=== PATIENT | female | born 1975 | race African-American/Black ===

== ENCOUNTER → 2020-09-28 13:50 | Outpatient (BNVA) | payer OTHER, SELFPAY | PROVIDERS: PCP Internal Medicine; Visit Provider Internal Medicine Pulmonary Disease | DX: Z76.89 Persons encountering health services in other specified circumstances (principal) ==

== ENCOUNTER 2020-09-28 14:34 | Outpatient (REF) | payer OTHER, SELFPAY ==
[2020-09-28 16:04] LABS: MANUAL DIFF FLAG NO
[2020-09-28 16:15] LABS: Basophils Percent Auto 0.3 % (0-2); Eosinophils Absolute Auto 0.3 X10*3/uL (0.0-0.4); Eosinophils Percent Auto 1.8 % (0-4); Hematocrit 40.3 % (37-47); Hemoglobin 13.1 g/dl (12.0-16.0); Imm Gran Abs Auto 0.06 X10*3/uL (0.00-0.03); Imm Gran Pct Auto 0.4 % (0.0-0.4); Lymphocytes Absolute Auto 4.3 X10*3/uL (1.2-4.9); Lymphocytes Percent Auto 27.8 % (20-40); Mean Corpuscular HGB Conc 32.5 g/dl (31.0-35.0); Mean Corpuscular Hemoglobin 28.9 pg (27.0-33.0); Mean Corpuscular Volume 88.8 fL (80-98); Mean Platelet Volume 9.8 fL (9.4-12.3); Monocytes Percent Auto 6.1 % (2-11); Neutrophils Absolute Auto 9.9 X10*3/uL (2.0-8.3); Neutrophils Percent Auto 63.6 % (45-73); Platelet Count 383 X10*3/uL (160-400); Red Blood Count 4.54 X10*6/uL (4.20-5.50); Red Cell Distribution Width 13.6 % (11.0-16.0); White Blood Count 15.5 X10*3/uL (4.8-10.8)
== END 2020-09-28 14:35 | disposition home or self-care (01) ==
LOC: HO.LAB 14:34
PROVIDERS: PCP Internal Medicine; Visit Provider Internal Medicine Pulmonary Disease
DX: J45.909 Unspecified asthma, uncomplicated (principal)
CPT/HCPCS: 36415; 82785; 85025; 86003

== ENCOUNTER 2020-10-07 13:48 | Outpatient (REF) | payer OTHER, SELFPAY ==
--- NOTE | 2020-10-07 17:29 | PFT_ITS ---
Forced vital capacity, FEV1, PVI76-49, and MVV are all normal. Post bronchodilator therapy, no change. Total lung capacity, normal. Residual volume normal. Diffusion capacity is normal. CONCLUSION: Normal pulmonary function test. MD RODRICK Byrne/MOD[facility] / [id number]
== END 2020-10-07 13:49 | disposition home or self-care (01) ==
LOC: HO.RESP 13:48
PROVIDERS: Visit Provider Internal Medicine Pulmonary Disease
DX: J45.909 Unspecified asthma, uncomplicated (principal); R06.02 Shortness of breath
CPT/HCPCS: 94060; 94727; 94729

== ENCOUNTER → 2021-01-13 14:40 | Outpatient (BNVA) | payer OTHER, SELFPAY | PROVIDERS: PCP Internal Medicine; Visit Provider Internal Medicine Pulmonary Disease | DX: J45.909 Unspecified asthma, uncomplicated (principal) ==

== ENCOUNTER → 2021-07-20 15:20 | Outpatient (BNVA) | payer OTHER, SELFPAY | PROVIDERS: PCP Internal Medicine; Visit Provider Internal Medicine Pulmonary Disease | DX: J45.909 Unspecified asthma, uncomplicated (principal) ==

== ENCOUNTER → 2022-01-12 15:34 | Outpatient (BNVA) | payer OTHER, SELFPAY | PROVIDERS: PCP Internal Medicine; Visit Provider Internal Medicine Pulmonary Disease | DX: J45.909 Unspecified asthma, uncomplicated (principal) ==

== ENCOUNTER → 2023-01-23 15:13 | Outpatient (BNVA) | payer OTHER, SELFPAY | PROVIDERS: PCP Internal Medicine; Visit Provider Internal Medicine Pulmonary Disease | DX: Z13.89 Encounter for screening for other disorder (principal) ==

== ENCOUNTER 2024-01-10 15:36 | Outpatient (AMB) | payer OTHER, SELFPAY ==
[2024-01-10 15:39] VITALS: BP 108/67; PULSE 82; O2SAT 98; BMI 33.3
--- NOTE | 2024-01-10 15:39 | A.OFFVIS_ITS ---
Intake Vital Signs 01/10/24 15:39 Height 5 ft 7 in Weight 212 lb 11.937 oz BMI 33.3 BP 108/67 Blood Pressure Location Rt brachial Position Sitting Pulse 82 Pulse Source Doppler Pulse Oximetry (%) 98 Oxygen Delivery Method Room Air Intake Visit Reasons: dyspnea Allergies ondansetron [From Zofran] Allergy (Verified 01/23/23 15:14) Unknown HPI dyspnea HPI Details 48-year-old lady, nonsmoker, followed fo r moderate persistent asthma, and environmental allergies.? She continues on Flovent and albuterol MDI with good control of her underlying asthma symptoms.? She also been using Singulair and Zyrtec for underlying environmental allergies.? She denies any recent exacerbations.? Review of Systems Const Denies daytime sleepiness, Denies excessive sweating, Denies fatigue, Denies fever(s), Denies lethargy, Denies malaise, Denies night sweats, Denies snoring and Denies weight loss Eyes Denies blurry vision and Denies itchy eyes ENT Denies nasal congestion, Denies post nasal drip, Denies sinus pain, Denies sinus pressure and Denies other ( Thrush) Card Denies chest pain, Denies pedal edema, Denies dyspnea, Denies orthopnea and Denies paroxysmal nocturnal dyspnea Resp Denies cough, Denies hemoptysis, Denies excessive phlegm production, Denies dys pnea, Denies snoring and Denies wheezing GI Denies abdominal pain and Denies heartburn Musc Denies myalgias, Denies arthralgias and Denies joint swelling Skin/Breast Denies rash Neuro Denies memory loss and Denies seizure-like activity Psych Denies abnormal sleep pattern, Denies anxiety and Denies memory loss Endo Denies excessive sweating, Denies fatigue and Denies heat intolerance Rajiv/Lymph Denies easy bruising Aller/Immun Denies itchy eyes, Denies seasonal rhinorrhea and Denies wheezing Physical Exam Vital Signs: Last Vital Signs Pulse 82 01/10/24 15:39 BP 108/67 01/10/24 15:39 Pulse Ox 98 01/10/24 15:39 Oxygen Delivery Method Room Air 01/10/24 15:39 BMI result Body Mass Index 33.3 Const General: no acute distress and alert Nutritional Appearance: not obese Orientation/consciousness: Other orientation findings ( oriented) HEENT Head: Yes atraumatic Eyes General: appearance normal, both eyes and all related structures Sclerae: sclerae normal EOM: EOMs intact bilaterally Neck Neck: Yes supple Lymphatic: no lymphadenopathy noted Resp Effort & Inspection: normal respiratory effort and no use of accessory muscles Auscultation: clear to auscultation bilaterally Cardio Rate: regular rate Rhythm: regular rhythm Heart sounds: no gallops, no murmurs and no rubs Skin General skin exam: other ( warm) Extrem General: No clubbing, No cyanosis and No edema Assessment & Plan Assessment & Plan (1) Asthma: Code(s): J45.909 - Unspecified asthma, uncomplicated Plan: Flovent no longer available, changed to Arnuity. Continue albuterol MDI. Symptoms well controlled at this time. (2) Environmental allergies: Code(s): Z91.09 - Other allergy status, other than to drugs and biological substances Plan: Well controlled on as needed Zyrtec and Singulair. Continue current regimen. Medications: New fluticasone furoate 200 mcg/actuation (Arnuity Ellipta) 1 inh inhalation DAILY 1 ea 6RF 30 days Discontinued fluticasone propionate 110 mcg/actuation (Flovent HFA) Discontinued Reason: Doctor's Order 2 puffs inhalation BID 1 ea 6RF 30 days Coding Level of Care Code Est Pt Level 4 (36190) Diagnoses Asthma J45.909 Environmental allergies Z91.09
== END 2024-01-10 15:47 | disposition home or self-care (01) ==
PROVIDERS: PCP Student in an Organized Health Care Education/Training Program; Visit Provider Internal Medicine Pulmonary Disease
DX: J45.909 Unspecified asthma, uncomplicated (principal); Z91.09 Other allergy status, other than to drugs and biological substances
CPT/HCPCS: 99214

== ENCOUNTER → 2024-01-10 15:36 | Outpatient (BNVA) | payer OTHER, SELFPAY | PROVIDERS: PCP Student in an Organized Health Care Education/Training Program; Visit Provider Internal Medicine Pulmonary Disease ==

== ENCOUNTER 2025-01-08 15:01 | Outpatient (AMB) | payer OTHER, SELFPAY ==
[2025-01-08 15:04] VITALS: BP 111/67; PULSE 76; O2SAT 99; BMI 32.3
--- NOTE | 2025-01-08 15:04 | A.OFFVIS_ITS ---
Vital Signs 01/08/25 15:04 Height 5 ft 7 in Weight 206 lb 2.115 oz BMI 32.3 BP 111/67 Blood Pressure Location Lt brachial Position Sitting Pulse 76 Pulse Source Doppler Pulse Oximetry (%) 99 Oxygen Delivery Method Room Air Intake Visit Reasons: Dyspnea Allergies ondansetron [From Zofran] Allergy (Verified 01/08/25 15:09) Unknown HPI HPI Dyspnea: Details: 48-year-old lady, nonsmoker, followed for moderate persistent asthma, and environmental allergies.? She previously used Flovent, but was switched to Arnuity lost this visit secondary to no availability of Flovent. Unfortunately, patient was not able to afford Arnuity in has been relying on her albuterol MDI, though with stable symptoms at this time. She also been using Singulair and Zyrtec for underlying environmental allergies.? She denies any recent exacerbations.? Review of Systems Const Denies daytime sleepiness, Denies excessive sweating, Denies fatigue, Denies fever(s), Denies lethargy, Denies malaise, Denies night sweats, Denies snoring a nd Denies weight loss Eyes Denies blurry vision and Denies itchy eyes ENT Denies nasal congestion, Denies post nasal drip, Denies sinus pain, Denies sinus pressure and Denies other ( Thrush) Card Denies chest pain, Denies pedal edema, Denies dyspnea, Denies orthopnea and Denies paroxysmal nocturnal dyspnea Resp Denies cough, Denies hemoptysis, Denies excessive phlegm production, Denies dyspnea, Denies snoring and Denies wheezing GI Denies abdominal pain and Denies heartburn Musc Denies myalgias, Denies arthralgias and Denies joint swelling Skin/Breast Denies rash Neuro Denies memory loss and Denies seizure-like activity Psych Denies abnormal sleep pattern, Denies anxiety and Denies memory loss Endo Denies excessive sweating, Denies fatigue and Denies heat intolerance Rajiv/Lymph Denies easy bruising Aller/Immun Denies itchy eyes, Denies seasonal rhinorrhea and Denies wheezing Physical Exam Vital Signs: Last Vital Signs Pulse 76 01/08/25 15:04 BP 111/67 01/08/25 15:04 Pulse Ox 99 01/08/25 15:04 Oxygen Delivery Method Room Air 01/08/25 15:04 BMI result Body Mass Index 32.3 Const General: no acute distress and alert Nutritional Appearance: not obese Orientation/consciousness: Other orientation findings ( oriented) HEENT Head: Yes atraumatic Eyes General: appearance normal, both eyes and all related structures Sclerae: sclerae normal EOM: EOMs intact bilaterally Neck Neck: Yes supple Lymphatic: no lymphadenopathy noted Resp Effort & Inspection: normal respiratory effort and no use of accessory muscles Auscultation: clear to auscultation bilaterally Cardio Rate: regular rate Rhythm: regular rhythm Heart sounds: no gallops, no murmurs and no rubs Skin General skin exam: other ( warm) Extrem General: No clubbing, No cyanosis and No edema Assessment & Plan Assessment & Plan (1) Asthma: Code(s): J45.909 - Unspecified asthma, uncomplicated Category: Medical Plan: Unable to of 4 on Arnuity, will try Asmanex. (2) Environmental allergies: Code(s): Z91.09 - Other allergy status, other than to drugs and biological substances Category: Medical Plan: Well controlled on current regimen of Singulair and Zyrtec. Continue current regimen. Medications: New mometasone 200 mcg/actuation (Asmanex HFA) 2 puffs inhalation BID 13 grams 6RF Coding Level of Care Code Est Pt Level 4 (35228) Diagnoses Asthma J45.909 Environmental allergies Z91.09
--- OUTSIDE RECORDS SUMMARY | 2025-01-08 16:21 | XMS_ITS | Encounter Summary ---
Author Organization [facility], Address [address] [place] [address] Phone Care Team Providers Care Staff Radiographer Name Role Phone Caridad Liu MD Primary Care Provid er Encounter Details Date Type Department Care Team (Late st Contact Info) Description 04/19/2020 Orders Only [facility] [address] [place] [id number] Israel Pate MD [address] [place] [id number] Serum creatinine abnormal Social History Tobacco Use Types Packs/Day Years Used Date Smoking Tobacco: Never Assessed Comments Unknown Sex and Gender Information Value Date Recorded Sex Assigned at Not on file Legal Sex Female 8:48 AM EST Gender Identity Not on file Sexual Orientation Not on file documented as of this encounter Plan of Treatment Not on file documented as of this encounter Visit Diagnoses Diagnosis Serum creatinine abnormal documented in this encounter Care Teams Staff Radiographer Relationship Specialty Start Date End Date Caridad Liu MD [id number] [facility] [address] [place], [place] PCP - General Internal Medicine 11/17/19 documented as of this encounter
--- OUTSIDE RECORDS SUMMARY | 2025-01-08 16:21 | XMS_ITS | Data Portability ---
Author Organization [facility], Main Office Address [address] [facility] [address] [place] [id number] Care Team Providers Care Hi Ranger Operator Name Role Phone ERIKA PAEZ Referring Provider CLARITZA BOONE Volleyball Assembler [phone] LIVIA GONZALES Referring Provider [phone] STEPHEN SMART Primary Care Provider Assessment No assessment recorded. Plan of Treatment Reminders Order Date Submit Date Provider Last Modified By Organization Details Last Modified Time Details Appointments None recorded. Lab lipid panel, serum 2023 024 SARAH [facility], [address], [place], [address], 12:06:11 BMP, serum or plasma 2023 024 SARAH [facility], [address] [place], [address], 4 12:06:11 CBC w/ auto diff 2023 024 SARAH [facility], [address], [place], [address], 4 12:06:10 TSH, ultra-sensi tive, serum 2023 024 SARAH [facility], [address], [place], [address], 4 12:06:12 lipid panel, serum 2021 SARAH [facility], [address], [address], [place], [address], 3 14:59:34 CBC w/ auto diff 2021 SARAH [facility], [address], [address], [place], [address], 3 14:18:16 CMP, serum or plasma 2021 SARAH [facility], [address], [address], [place], [address], 3 14:59:33 TSH, serum or plasma 2021 SARAH [facility], [address], [address], [place], [address], 3 15:20:55 vitamin B12, serum 2021 SARAH [facility], [address], [address], [place], [address], 3 15:20:54 Referral physical therapist referral 2021 022 [email or web address] Not available 3 11:27:18 nutritionis t/dietitian referral [address] [facility], [address] [place], [address], 2 16:22:54 dermatologi referral - hyperpigmen curt area bilateral cheeks 2020 021 [facility], [address] [place] [address], [address], [place], [address], 2 08:58:04 nutritionis t/dietitian referral 2020 021 [email or web address] Not available 1 11:00:31 gynecologis t referral - Patient to schedule 2020 021 [email or web address] Not available 2 13:46:27 Procedures colonoscopy screening (PROC) 2023 024 [email or web address] Not available 4 09:05:41 Surgeries None recorded. Imaging MAMMO, screening, bilateral 2023 024 SARAH [facility], [address] [place], [address], 4 18:04:41 XR, knee, 3 view 2021 022 [email or web address] [facility], [address] [place], [address], 2 15:02:49 MAMMO, screening, bilateral - Perform Diagnostic Mammogram and Breast Ultrasound if needed / Perform Ultrasound Guided Aspiration and/or Breast Biopsy if warranted 2020 021 [email or web address] [facility] ([facility]), [address] [place], [address], 11:00:31 Medication Orders None recorded. Patient TargetsNo targets recorded. Patient Instructions Encounter Date Encounter Id Patient Instructions Last Modified By Organization Details Last Modified Time 02/15/2021 [id number] iliotibial band syndrome: care instructions [email or web address] Not available 02/15/2021 11:46:31 09/20/2021 [id number] starting a weight loss plan: care instructions [email or web address] Not available 09/20/2021 10:46:18 Nutrition Referral and Weight Management Follow-up Information [email or web address] Not available 09/20/2021 10:46:18 Cervical Cancer Screening [email or web address] Not available 09/20/2021 10:46:19 09/26/2022 [id number] starting a weight loss plan: care instructions [email or web address] Not available 09/26/2022 16:01:20 Nutrition Referral and Weight Management Follow-up Information [email or web address] Not available 09/26/2022 16:01:19 12/28/2022 [id number] starting a weight loss plan: care instructions [email or web address] Not available 12/28/2022 15:48:27 05/22/2024 [id number] Well Visit, Ages 18 to 65: Care Instructions Not available 05/22/2024 08:49:00 preventing falls: care instructions Not available 05/22/2024 08:49:00 adjustment disorder: care instructions Not available 05/22/2024 09:34:56 starting a weight loss plan: care instructions Not available 05/22/2024 09:34:56 Nutrition Referral and Weight Management Follow-up Information Not available 05/22/2024 09:34:55 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 malignant neoplasm of cervix Patient to schedule Referring Physician: Annmarie Liu [facility], Encounter Date: 09/20/2021 Linen Aide/dietitian Refer ral for Body mass index 30+ - obesity Referring Physician: Annmarie Liu [facility], Encounter Date: 09/20/2021 Certified Wellness Program Manager Referral for H yperpigmentation of skin hyperpigmented area bilateral cheeks Referring Physician: Annmarie Liu [facility], Encounter Date: 09/20/2021 Linen Aide/dietitian Refer ral for Body mass index 30+ - obesity Referring Physician: Jolene Chen [facility], Encounter Date: 09/26/2022 Physical Therapist Referral for Pain of right knee joint Referring Physician: Jolene Chen [facility], Encounter Date: 09/26/2022 Results Created Date Observation Date Name Description Value Unit Range Abnormal Flag Note LastModifiedBy Organization Detail LastModifiedTime 01/13/20 23 01/12/2023 COMPL ETE BLOOD COUNT WBC 12.4 K/mm3 (4.0-1 1.0) high Not Available [facility] (Centralized Electronic Ordering - All Locations) Patient Can Go To The Location Of Their Choice, [id number] 01/12/2023 14:18:16 01/13/2001/12/2023 COMPL ETE BLOOD COUNT RBC 4.64 M/mm3 (4.20- 5.40) Not Available [facility] (Centralized Electronic Ordering - All Locations) Patient Can Go To The Location Of Their Choice, 01/12/2023 14:18:16 01/13/20 23 01/12/2023 COMPL ETE BLOOD COUNT HGB 13.3 gm/dL (11.7- 15.5) Not Available [facility] (Centralized Electronic Ordering - All Locations) Patient Can Go To The Location Of Their Choice, 01/12/2023 14:18:16 01/13/2001/12/2023 COMPL ETE BLOOD COUNT HCT 42.4 % (35.7- 45.8) Not Available [facility] (Centralized Electronic Ordering - All Locations) Patient Can Go To The Location Of Their Choice, 01/12/2023 14:18:16 01/13/2001/12/2023 COMPL ETE BLOOD COUNT MCV 91.4 fL (80.0- 100.0) Not Available [facility] (Centralized Electronic Ordering - All Locations) Patient Can Go To The Location Of Their Choice, 01/12/2023 14:18:16 01/13/2001/12/2023 COMPL ETE BLOOD COUNT MCH 28.7 pg (27.0- 34.0) Not Available [facility] (Centralized Electronic Ordering - All Locations) Patient Can Go To The Location Of Their Choice, 01/12/2023 14:18:16 01/13/2001/12/2023 COMPL ETE BLOOD COUNT MCHC 31.4 g/dL (33.0- 37.0) low Not Available [facility] (Centralized Electronic Ordering - All Locations) Patient Can Go To The Location Of Their Choice, 01/12/2023 14:18:16 01/13/2001/12/2023 COMPL ETE BLOOD COUNT plt 407 K/mm3 (150-4 60) Not Available [facility] (Centralized Electronic Ordering - All Locations) Patient Can Go To The Location Of Their Choice, 01/12/2023 14:18:16 01/13/2001/12/2023 COMPL ETE BLOOD COUNT RDW-SD 47.3 fL (<47.0 ) high Not Available [facility] (Centralized Electronic Ordering - All Locations) Patient Can Go To The Location Of Their Choice, 01/12/2023 14:18:16 01/13/2001/12/2023 COMPL ETE BLOOD COUNT MPV 9.2 fL (9.4-1 2.4) low Not Available [facility] (Centralized Electronic Ordering - All Locations) Patient Can Go To The Location Of Their Choice, 01/12/2023 14:18:16 01/13/2001/12/2023 COMPL ETE BLOOD COUNT automated NRBC 0.0 #/100 _WBC' s Not Available [facility] (Centralized Electronic Ordering - All Locations) Patient Can Go To The Location Of Their Choice, 01/12/2023 14:18:16 01/13/2001/12/2023 COMPL ETE BLOOD COUNT abs. NRBC 0.0 K/mm3 Not Available [facility] (Centralized Electronic Ordering - All Locations) Patient Can Go To The Location Of Their Choice, 01/12/2023 14:18:16 01/13/2001/12/2023 COMPR EHENS CATHI METAB OLIC PANL glucose 86 mg/dL (70-99 ) Not Available [facility] (Centralized Electronic Ordering - All Locations) Patient Can Go To The Location Of Their Choice, 01/12/2023 14:59:33 01/13/2001/12/2023 COMPR EHENS CATHI METAB OLIC PANL BUN 17 mg/dL (6-20) Not Available [facility] (Centralized Electronic Ordering - All Locations) Patient Can Go To The Location Of Their Choice, 01/12/2023 14:59:33 01/13/2001/12/2023 COMPR EHENS CATHI METAB OLIC PANL creatinine 1.1 mg/dL (0.5-1 .0) high Not Available [facility] (Centralized Electronic Ordering - All Locations) Patient Can Go To The Location Of Their Choice, 01/12/2023 14:59:33 01/13/20 23 01/12/2023 COMPR EHENS CATHI METAB OLIC PANL sodium 136 mmol/ L (133-1 45) Not Available [facility] (Centralized Electronic Ordering - All Locations) Patient Can Go To The Location Of Their Choice, 01/12/2023 14:59:33 01/13/2001/12/2023 COMPR EHENS CATHI METAB OLIC PANL potassium 5.0 mmol/ L (3.6-5 .2) Not Available [facility] ([facility] Ordering - All Locations) Patient Can Go To The Location Of Their Choice, 01/12/2023 14:59:33 01/13/2001/12/2023 COMPR EHENS CATHI METAB OLIC PANL chloride 103 mmol/ L (98-10 7) Not Available [facility] (Centralized Electronic Ordering - All Locations) Patient Can Go To The Location Of Their Choice, 01/12/2023 14:59:33 01/13/2001/12/2023 COMPR EHENS CATHI METAB OLIC PANL bicarbonate 27 mmol/ L (22-29 ) Not Available [facility] (Centralized Electronic Ordering - All Locations) Patient Can Go To The Location Of Their Choice, 01/12/2023 14:59:33 01/13/2001/12/2023 COMPR EHENS CATHI METAB OLIC PANL anion gap 6 (4-17) Not Available [facility] (Centralized Electronic Ordering - All Locations) Patient Can Go To The Location Of Their Choice, 01/12/2023 14:59:33 01/13/2001/12/2023 COMPR EHENS CATHI METAB OLIC PANL albumin 4.2 gm/dL (3.4-4 .8) Not Available [facility] (Centralized Electronic Ordering - All Locations) Patient Can Go To The Location Of Their Choice, 01/12/2023 14:59:33 01/13/2001/12/2023 COMPR EHENS CATHI METAB OLIC PANL calcium 9.7 mg/dL (8.6-1 0.5) Not Available [facility] ([facility] Electronic Ordering - All Locations) Patient Can Go To The Location Of Their Choice, 01/12/2023 14:59:33 01/13/2001/12/2023 COMPR EHENS CATHI METAB OLIC PANL bilirubin,to collin 0.3 mg/dL (0-1.2 ) Not Available [facility] (Central[facility] Electronic Ordering - All Locations) Patient Can Go To The Location Of Their Choice, 01/12/2023 14:59:33 01/13/2001/12/2023 COMPR EHENS CATHI METAB OLIC PANL total protein 7.2 gm/dL (6.2-8 .2) Not Available [facility] ([facility] Electronic Ordering - All Locations) Patient Can Go To The Location Of Their Choice, 01/12/2023 14:59:33 01/13/2001/12/2023 COMPR EHENS CATHI METAB OLIC PANL Ag ratio 1.4 Not Available [facility] (Centralized Electronic Ordering - All Locations) Patient Can Go To The Location Of Their Choice, 01/12/2023 14:59:33 01/13/2001/12/2023 COMPR EHENS CATHI METAB OLIC PANL AST 33 U/L (0-32) high Not Available [facility] (Centralized Electronic Ordering - All Locations) Patient Can Go To The Location Of Their Choice, 01/12/2023 14:59:33 01/13/2001/12/2023 COMPR EHENS CATHI METAB OLIC PANL alk phos 89 U/L (35-10 4) Not Available [facility] ([facility] Electronic Ordering - All Locations) Patient Can Go To The Location Of Their Choice, 01/12/2023 14:59:33 01/13/20 23 01/12/2023 COMPR EHENS CATHI METAB OLIC PANL ALT 49 U/L (0-33) high Not Available [facility] ([facility] Ordering - All Locations) Patient Can Go To The Location Of Their Choice, 01/12/2023 14:59:33 01/13/2001/12/2023 COMPR EHENS CATHI METAB OLIC PANL estimated GFR creatinine 62 mL/mi n/1.7 3_M2 Creat inine based estim ated glome rular filtr ation (eGFR ) in adult s is calcu lated using the Natio nal Kidne y Found ation recom lexie d 2020 CKD-E PI equat ion. Estim ates GFR from serum creat inine , age and sex. Not Available [facility] (Centralized Electronic Ordering - All Locations) Patient Can Go To The Location Of Their Choice, 01/12/2023 14:59:33 01/13/20 23 01/12/2023 LIPID PANEL cholesterol, total 184 mg/dL (<200) Not Available [facility] ([facility] - All Locations) Patient Can Go To The Location Of Their Choice, 01/12/2023 14:59:34 01/13/20 23 01/12/2023 LIPID PANEL triglyceride 108 mg/dL (<150) Not Available [facility] ([facility] - All Locations) Patient Can Go To The Location Of Their Choice, 01/12/2023 14:59:34 01/13/20 23 01/12/2023 LIPID PANEL HDL chol 50 mg/dL (>39) Not Available [facility] ([facility] Ordering - All Locations) Patient Can Go To The Location Of Their Choice, 01/12/2023 14:59:34 01/13/20 23 01/12/2023 LIPID PANEL LDL cholesterol, calculated 112 mg/dL (0-130 ) Not Available [facility] (Central[facility] Ordering - All Locations) Patient Can Go To The Location Of Their Choice, 01/12/2023 14:59:34 01/13/20 23 01/12/2023 LIPID PANEL non HDL cholesterol (calc) 134 mg/dL (<160) Not Available [facility] ([facility] Order[facility] - All Locations) Patient Can Go To The Location Of Their Choice, 01/12/2023 14:59:34 01/13/2001/12/2023 VITAM IN B12 vitamin B12 310 pg/mL (232-1 245) Not Available [facility] ([facility]ized Electronic Ordering - All Locations) Patient Can Go To The Location Of Their Choice, 01/12/2023 15:20:54 01/13/2001/12/2023 TSH WITH REFLE X TO FT4 TSH 2.16 uIU/m L (0.4-4 .2) Not Available [facility] (Centralized Electronic Ordering - All Locations) Patient Can Go To The Location Of Their Choice, 01/12/2023 15:20:55 05/30/20 24 05/31/2024 CBC WITH DIFFE RENTI AL/PL ATELE T WBC 11.5 x10e3 /uL 3.4-10 .8 above high normal Not Available [facility] ([facility]) [address] [facility], [place], [address], 05/31/2024 12:06:10 05/30/20 24 05/31/2024 CBC WITH DIFFE RENTI AL/PL ATELE T RBC 4.47 x10e6 /uL 3.77-5 .28 normal Not Available [facility] ([facility]) [address] [facility], [place], [address], 05/31/2024 12:06:10 05/30/20 24 05/31/2024 CBC WITH DIFFE RENTI AL/PL ATELE T hemoglobin 12.8 g/dL 11.1-1 5.9 normal Not Available [facility] ([facility]) [address] [facility], [place], [address], 05/31/2024 12:06:10 05/30/20 24 05/31/2024 CBC WITH DIFFE RENTI AL/PL ATELE T hematocrit 39.5 % 34.0-4 6.6 normal Not Available [facility] ([facility]) [address] [facility], [place], [address], 05/31/2024 12:06:10 05/30/20 24 05/31/2024 CBC WITH DIFFE RENTI AL/PL ATELE T MCV 88 fL 79-97 normal Not Available [facility] ([facility]) [address] [place], [address], 05/31/2024 12:06:10 05/30/20 24 05/31/2024 CBC WITH DIFFE RENTI AL/PL ATELE T MCH 28.6 pg 26.6-3 3.0 normal Not Available [facility] ([facility]) [address] [place], [address], 05/31/2024 12:06:10 05/30/20 24 05/31/2024 CBC WITH DIFFE RENTI AL/PL ATELE T MCHC 32.4 g/dL 31.5-3 5.7 normal Not Available [facility] ([facility]) [address] [facility], [place], [address], 05/31/2024 12:06:10 05/30/20 24 05/31/2024 CBC WITH DIFFE RENTI AL/PL ATELE T RDW 12.9 % 11.7-1 5.4 Not Available [facility] ([facility]) [address] [facility], [place], [address], 05/31/2024 12:06:10 05/30/20 24 05/31/2024 CBC WITH DIFFE RENTI AL/PL ATELE T platelets 361 x10e3 /uL 150-45 0 normal Not Available [facility] ([facility]) [address] [facility], [place], [address], 05/31/2024 12:06:10 05/30/20 24 05/31/2024 CBC WITH DIFFE RENTI AL/PL ATELE T neutrophils 69 % not estab. normal Not Available [facility] ([facility]) [address] [facility], [place], [address], 05/31/2024 12:06:10 05/30/20 24 05/31/2024 CBC WITH DIFFE RENTI AL/PL ATELE T lymphs 24 % not estab. normal Not Available [facility] ([facility]) [address] [place], [address], 05/31/2024 12:06:10 05/30/20 24 05/31/2024 CBC WITH DIFFE RENTI AL/PL ATELE T monocytes 6 % not estab. normal Not Available [facility] ([facility]) [address] [place], [address], 05/31/2024 12:06:10 05/30/20 24 05/31/2024 CBC WITH DIFFE RENTI AL/PL ATELE T eos 1 % not estab. normal Not Available [facility] ([facility]) [address] [place], [address], 05/31/2024 12:06:10 05/30/20 24 05/31/2024 CBC WITH DIFFE RENTI AL/PL ATELE T basos 0 % not estab. normal Not Available [facility] ([facility]) [address] [facility], [place], [address], 05/31/2024 12:06:10 05/30/20 24 05/31/2024 CBC WITH DIFFE RENTI AL/PL ATELE T immature cells LICENSED PHYSICAL THERAPIST Not Available [facility] ([facility]) [address] [facility], [place], [address], 05/31/2024 12:06:10 05/30/20 24 05/31/2024 CBC WITH DIFFE RENTI AL/PL ATELE T neutrophils (absolute) 7.9 x10e3 /uL 1.4-7. 0 above high normal Not Available [facility] ([facility]) [address] [facility], [place], [address], 05/31/2024 12:06:10 05/30/20 24 05/31/2024 CBC WITH DIFFE RENTI AL/PL ATELE T lymphs (absolute) 2.7 x10e3 /uL 0.7-3. 1 normal Not Available [facility] ([facility]) [address] [place], [address], 05/31/2024 12:06:10 05/30/20 24 05/31/2024 CBC WITH DIFFE RENTI AL/PL ATELE T monocytes(ab solute) 0.7 x10e3 /uL 0.1-0. 9 normal Not Available [facility] ([facility]) [address] [place], [address], 05/31/2024 12:06:10 05/30/20 24 05/31/2024 CBC WITH DIFFE RENTI AL/PL ATELE T eos (absolute) 0.2 x10e3 /uL 0.0-0. 4 normal Not Available [facility] ([facility]) [address] [facility], [place], [address], 05/31/2024 12:06:10 05/30/20 24 05/31/2024 CBC WITH DIFFE RENTI AL/PL ATELE T baso (absolute) 0.0 x10e3 /uL 0.0-0. 2 normal Not Available [facility] ([facility]) [address] [facility], [place], [address], 05/31/2024 12:06:10 05/30/20 24 05/31/2024 CBC WITH DIFFE RENTI AL/PL ATELE T immature granulocytes 0 % not estab. Not Available [facility] ([facility]) [address] [facility], [place], [address], 05/31/2024 12:06:10 05/30/20 24 05/31/2024 CBC WITH DIFFE RENTI AL/PL ATELE T immature grans (abs) 0.0 x10e3 /uL 0.0-0. 1 Not Available [facility] ([facility]) [address] [facility], [place], [address], 05/31/2024 12:06:10 05/30/20 24 05/31/2024 CBC WITH DIFFE RENTI AL/PL ATELE T NRBC LICENSED PHYSICAL THERAPIST Not Available [facility] ([facility]) [address] [facility], [place], [address], 05/31/2024 12:06:10 05/30/20 24 05/31/2024 CBC WITH DIFFE RENTI AL/PL ATELE T hematology comments: LICENSED PHYSICAL THERAPIST Not Available [facility] ([facility]) [address] [place], [address], 05/31/2024 12:06:10 05/30/20 24 05/31/2024 BASIC METAB OLIC PANEL (8) glucose 82 mg/dL 70-99 normal Not Available [facility] ([facility]) [address] [place], [address], 05/31/2024 12:06:10 05/30/20 24 05/31/2024 BASIC METAB OLIC PANEL (8) BUN 23 mg/dL 6-24 normal Not Available [facility] ([facility]) [address] [place], [address], 05/31/2024 12:06:10 05/30/20 24 05/31/2024 BASIC METAB OLIC PANEL (8) creatinine 1.07 mg/dL 0.57-1 .00 above high normal Not Available [facility] ([facility]) [address] [place], [address], 05/31/2024 12:06:10 05/30/20 24 05/31/2024 BASIC METAB OLIC PANEL (8) eGFR 64 mL/mi n/1.7 3 >59 normal Not Available [facility] ([facility]) [address] [place], [address], 05/31/2024 12:06:10 05/30/20 24 05/31/2024 BASIC METAB OLIC PANEL (8) BUN/creatini ne ratio 21 9-23 normal Not Available [facility] ([facility]) [address] [facility] [place], [address], 05/31/2024 12:06:10 05/30/20 24 05/31/2024 BASIC METAB OLIC PANEL (8) sodium 139 mmol/ L 134-14 4 normal Not Available [facility] ([facility]) [address] [facility] [place], [address], 05/31/2024 12:06:10 05/30/20 24 05/31/2024 BASIC METAB OLIC PANEL (8) potassium 4.4 mmol/ L 3.5-5. 2 normal Not Available [facility] ([facility]) [address] [facility] [place], [address], 05/31/2024 12:06:10 05/30/20 24 05/31/2024 BASIC METAB OLIC PANEL (8) chloride 106 mmol/ L 96-106 normal Not Available [facility] ([facility]) [address] [place], [address], 05/31/2024 12:06:10 05/30/20 24 05/31/2024 BASIC METAB OLIC PANEL (8) carbon dioxide, total 18 mmol/ L 20-29 below low normal Not Available [facility] ([facility]) [address] [place], [address], 05/31/2024 12:06:10 05/30/20 24 05/31/2024 BASIC METAB OLIC PANEL (8) calcium 9.1 mg/dL 8.7-10 .2 normal Not Available [facility] ([facility]) [address] [place], [address], 05/31/2024 12:06:10 05/30/20 24 05/31/2024 LIPID PANEL cholesterol, total 169 mg/dL 100-19 9 normal Not Available [facility] ([facility]) [address] [place], [address], 05/31/2024 12:06:11 05/30/20 24 05/31/2024 LIPID PANEL triglyceride s 76 mg/dL 0-149 normal Not Available [facility] ([facility]) [address] [place], [address], 05/31/2024 12:06:11 05/30/20 24 05/31/2024 LIPID PANEL HDL cholesterol 48 mg/dL >39 normal Not Available [facility] ([facility]) [address] [place], [address], 05/31/2024 12:06:11 05/30/20 24 05/31/2024 LIPID PANEL VLDL cholesterol olegario 14 mg/dL 5-40 Not Available [facility] ([facility]) [address] [place], [address], 05/31/2024 12:06:11 05/30/20 24 05/31/2024 LIPID PANEL LDL chol calc ([facility]) 107 mg/dL 0-99 above high normal Not Available [facility] ([facility]) [address] [facility], [place], [address], 05/31/2024 12:06:11 05/30/20 24 05/31/2024 LIPID PANEL LDL calc comment: LICENSED PHYSICAL THERAPIST Not Available [facility] ([facility]) [address] [place], [address], 05/31/2024 12:06:11 05/30/20 24 05/31/2024 TSH RFX ON ABNOR MAL TO FREE T4 TSH 1.770 uIU/m L 0.450- 4.500 normal Not Available [facility] ([facility]) [address] [place], [address], 05/31/2024 12:06:12 07/04/20 24 07/05/2024 CBC WITH DIFFE RENTI AL/PL ATELE T WBC 11.2 x10e3 /uL 3.4-10 .8 above high normal Not Available [facility] ([facility]) [address] [place], [address], 07/05/2024 08:07:16 07/04/20 24 07/05/2024 CBC WITH DIFFE RENTI AL/PL ATELE T RBC 4.55 x10e6 /uL 3.77-5 .28 normal Not Available [facility] ([facility]) [address] [place], [address], 07/05/2024 08:07:16 07/04/20 24 07/05/2024 CBC WITH DIFFE RENTI AL/PL ATELE T hemoglobin 13.2 g/dL 11.1-1 5.9 normal Not Available [facility] ([facility]) [address] [place], [address], 07/05/2024 08:07:16 07/04/20 24 07/05/2024 CBC WITH DIFFE RENTI AL/PL ATELE T hematocrit 41.1 % 34.0-4 6.6 normal Not Available [facility] ([facility]) [address] [facility], [place], [address], 07/05/2024 08:07:16 07/04/2007/05/2024 CBC WITH DIFFE RENTI AL/PL ATELE T MCV 90 fL 79-97 normal Not Available [facility] ([facility]) [address] [place], [address], 07/05/2024 08:07:16 07/04/2007/05/2024 CBC WITH DIFFE RENTI AL/PL ATELE T MCH 29.0 pg 26.6-3 3.0 normal Not Available [facility] ([facility]) [address] [place], [address], 07/05/2024 08:07:16 07/04/2007/05/2024 CBC WITH DIFFE RENTI AL/PL ATELE T MCHC 32.1 g/dL 31.5-3 5.7 normal Not Available [facility] ([facility]) [address] [place], [address], 07/05/2024 08:07:16 07/04/2007/05/2024 CBC WITH DIFFE RENTI AL/PL ATELE T RDW 13.1 % 11.7-1 5.4 Not Available [facility] ([facility]) [address] [place], [address], 07/05/2024 08:07:16 07/04/2007/05/2024 CBC WITH DIFFE RENTI AL/PL ATELE T platelets 409 x10e3 /uL 150-45 0 normal Not Available [facility] ([facility]) [address] [place], [address], 07/05/2024 08:07:16 07/04/20 24 07/05/2024 CBC WITH DIFFE RENTI AL/PL ATELE T neutrophils 61 % not estab. normal Not Available [facility] ([facility]) [address] [facility], [place], [address], 07/05/2024 08:07:16 07/04/20 24 07/05/2024 CBC WITH DIFFE RENTI AL/PL ATELE T lymphs 27 % not estab. normal Not Available [facility] ([facility]) [address] [facility], [place], [address], 07/05/2024 08:07:16 07/04/20 24 07/05/2024 CBC WITH DIFFE RENTI AL/PL ATELE T monocytes 7 % not estab. normal Not Available [facility] ([facility]) [address] [facility], [place], [address], 07/05/2024 08:07:16 07/04/20 24 07/05/2024 CBC WITH DIFFE RENTI AL/PL ATELE T eos 4 % not estab. normal Not Available [facility] ([facility]) [address] [facility], [place], [address], 07/05/2024 08:07:16 07/04/20 24 07/05/2024 CBC WITH DIFFE RENTI AL/PL ATELE T basos 1 % not estab. normal Not Available [facility] ([facility]) [address] [facility] [facility], [place], [address], 07/05/2024 08:07:16 07/04/20 24 07/05/2024 CBC WITH DIFFE RENTI AL/PL ATELE T immature cells LICENSED PHYSICAL THERAPIST Not Available [facility] ([facility]) [address] [facility], [place], [address], 07/05/2024 08:07:16 07/04/20 24 07/05/2024 CBC WITH DIFFE RENTI AL/PL ATELE T neutrophils (absolute) 6.9 x10e3 /uL 1.4-7. 0 normal Not Available [facility] ([facility]) [address] [facility], [place], [address], 07/05/2024 08:07:16 07/04/20 24 07/05/2024 CBC WITH DIFFE RENTI AL/PL ATELE T lymphs (absolute) 3.0 x10e3 /uL 0.7-3. 1 normal Not Available [facility] ([facility]) [address] [facility], [place], [address], 07/05/2024 08:07:16 07/04/20 24 07/05/2024 CBC WITH DIFFE RENTI AL/PL ATELE T monocytes(ab solute) 0.8 x10e3 /uL 0.1-0. 9 normal Not Available [facility] ([facility]) [address] [facility], [place], [address], 07/05/2024 08:07:16 07/04/20 24 07/05/2024 CBC WITH DIFFE RENTI AL/PL ATELE T eos (absolute) 0.4 x10e3 /uL 0.0-0. 4 normal Not Available [facility] ([facility]) [address] [facility], [place], [address], 07/05/2024 08:07:16 07/04/20 24 07/05/2024 CBC WITH DIFFE RENTI AL/PL ATELE T baso (absolute) 0.1 x10e3 /uL 0.0-0. 2 normal Not Available [facility] ([facility]) [address] [place], [address], 07/05/2024 08:07:16 07/04/20 24 07/05/2024 CBC WITH DIFFE RENTI AL/PL ATELE T immature granulocytes 0 % not estab. Not Available [facility] ([facility]) [address] [facility], [place], [address], 07/05/2024 08:07:16 07/04/20 24 07/05/2024 CBC WITH DIFFE RENTI AL/PL ATELE T immature grans (abs) 0.0 x10e3 /uL 0.0-0. 1 Not Available [facility] ([facility]) [address] [facility], [place], [address], 07/05/2024 08:07:16 07/04/20 24 07/05/2024 CBC WITH DIFFE RENTI AL/PL ATELE T NRBC LICENSED PHYSICAL THERAPIST Not Available [facility] ([facility]) [address] [facility], [place], [address], 07/05/2024 08:07:16 07/04/20 24 07/05/2024 CBC WITH DIFFE RENTI AL/PL ATELE T hematology comments: LICENSED PHYSICAL THERAPIST Not Available [facility] ([facility]) [address] [facility], [place], [address], 07/05/2024 08:07:16 03/28/20 22 03/28/2022 MAMMO , scree poppy, digit al, bilat eral PROCED URE: MM Digita l Mammo Screen ing INDICA TION: Screen ing for breast cancer . COMPAR EVELINE: Multip le priors , most recent exam 11/30/19 21 TECHNI QUE: Full-f ield digita l CC and MLO 3D tomosy nthesi s images of both breast s were acquir ed. Comput er-aid ed detect ion (CAD) was utiliz ed in the interp retati on of this study. DENSIT Y: The breast tissue is hetero geneou sly dense, which may obscur e masses . FINDIN GS: Focal asymme try within the retroa reolar aspect of the right breast , drafter construction ior one third IMPRES BELTRAN: Spot compre ssion CC and MLO views of the right breast recomm ended. Ultras ound may be indica curt RECOMM ENDATI ON: Diagno stic 3D tomosy nthesi s of the right breast with schedu led ultras ound BI-RAD S: 0 (Incom plete - Need Additi onal Imagin g Evalua tion. We will recall the iesha novoa) Lay letter mailed to iesha prieto WSN: [id number] Orderi ng Physic tod: Francisca mcguire MD, Annmarie Julian t Class: Outpat ient [facility] (Outpt Imaging) [address] [place] [address], [address], 10/08/2022 01:20:38 04/04/20 22 04/04/2022 mm digit al mammo unila t right PROCED URE: MM Digita l Mammo Unilat Right INDICA TION: Call back from screen ing COMPAR EVELINE: Multip le prior studie s dating back to 2018 TECHNI QUE: Digita l diagno stic mammog everett consis ting of spot compre ssion cc and spot compre ssion MLO tomosy nthesi s. FINDIN GS: The focal asymme try seen in the drafter construction ior latera l right breast efface s with spot compre ssion, with stabil ity of the parenc hymal patter n compar ed with multip le prior studie s. Findin gs are consis tent with summat ion artifa ct. IMPRES BELTRAN: No mammog raphic eviden ce of malign ignacio right breast . RECOMM ENDATI ON: Annual mammog raphic screen ing BI-RAD S: 1 (Negat cathi) Lay letter mailed to iesha prieto WSN: [id number] Orderi ng Physic tod: Francisca mcguire MD, Annmarie Julian t Class: Outpat ient [facility] (Outpt Imaging) [address] [place] [address], [address], 10/08/2022 01:20:37 04/05/20 23 04/05/2023 MAMMO , scree poppy, digit al, bilat eral Bilate ral full field digita l breast tomosy nthesi s perfor med on a Hologi c Seleni a dimens ion with I CAD second look 7.2-H comput er aided detect ion dated April 05, 2023. Compar eveline films are from March 28, 2022 and 2020. HISTOR Y: Breast cancer screen ing. FINDIN GS: The breast s are hetero geneou sly dense, which may obscur e small masses . No suspic ious mass, nodule , morgan ectura l distor tion or groupe d microc alcifi cation s are seen. There is no eviden ce of skin thicke poppy or nipple retrac tion. IMPRES BELTRAN: No mammog raphic eviden ce of malign ignacio and no signif icant interv al change . Recomm endati on: Routin e annual screen ing. Examin ation [id number] and G0202. BI-RAD S one negati ve. Letter L3. Thank you for ayaani ng me to partic ipate in the care of this patien t. WSN: [id number] Orderi ng Physic tod: Ronnie Bello ie Dictat ed By: Miguel Childress MD Dictat ed Date/T do: 3:40 pm Review ed By: Miguel Childress MD Signed By: Miguel Childress MD Signed Date/T do: 3:40 pm Transc ribed By: CADEN Transc riptio n Date/T do: 3:39 pm Birads : Patien t Class: Outpat ient [address] (Outpt Imaging) [address] [facility], [place], [address], 04/05/2023 15:55:39 08/14/20 24 08/14/2024 MAMMO , scree poppy, bilat eral No observ ation record ed. [facility] [address] , [place], [address], 08/17/2024 10:25:01 08/14/20 24 08/14/2024 MAMMO , scree poppy, digit al, bilat eral PROCED URE: MM Digita l Mammo Screen ing INDICA TION: Screen ing for breast cancer . No known palpab le abnorm alitie s. COMPAR EVELINE: Back to 11/30/19 21. TECHNI QUE:Fu ll-fie ld digita l CC and MLO 3D tomosy nthesi s images of both breast s were acquir ed. Comput er-aid ed detect ion (CAD) was utiliz ed in the interp retati on of this study. DENSIT Y: The breast s are hetero geneou sly dense, which may obscur e small masses . FINDIN GS: No suspic ious masses , microc alcifi cation s, areas of morgan ectura l distor tion, or skin thicke poppy to sugges t malign ignacio. IMPRES BELTRAN: No mammog raphic eviden ce of malign ignacio. RECOMM ENDATI ON: Annual mammog raphic screen ing. BI-RAD S: 1 (Negat cathi) Lay letter mailed to iesha prieto WSN: [id number] Orderi ng Physic tod: Ronnie Bello Dictat ed By: Izzy Perez MD Dictat ed Date/T do: 5:58 pm Review ed By: Izzy Perez MD Signed By: Izzy Perez MD Signed Date/T do: 5:58 pm Transc ribed By: CSB Transc riptio n Date/T do: 5:55 pm Birads : Iesha prieto Class: Outpat ient [id number] [facility] (Outpt Imaging) [address] [place] [address], [address], 08/17/2024 10:24:30 Result Notes None recorded. Problems Name Problem SNOMED Code Status Onset Date Resolution Date Notes Provider Name and Address Organization Details Recorded Time Finding of trunk structur e [id number] Completed 201309/05/2016 IMPRESSI ON: X NEARLY 1 WEEK NOW, TENDER AND PAINFUL. NO FEVERS, CHILLS, VOMITING OR DIARRHEA . NO PAST HX OF GI DZ. NOT REDUCIBL E. XRAY NO SIGNS OF OBSTRUCT ION, COLON FILLED WITH STOOL BEEN USING MIRALAX X PAST 4 DAYS WITHOUT SIG CHANGE IN PAIN OR MASS. DISCUSSE D WITH PCP WHO ALSO SAW AND EXAMINED PT. WILL CHECK US HAVE SURGICAL CONSULT. PT IS AGAIN AWARE TO SEEK MORE IMMEDIAT E ATTN IN ER IN MEANTIME FOR ANY ACUTE WORSENIN G SXS. WE WILL ARRANGE BOTH SURGICAL APPT AND US.; RECORDED 04/22/20 14 8:56AM BY MEE ATKINSON, OFFICE VISIT Annmarie farooq null, [facility] 6 15:24:27 Generali zed abdomina l pain [id number] Completed 200805/18/2014 IMPRESSI ON: NEG ABD/PELV IS US, PAIN IS RESOLVED , NO FURTHER WORKUP; RECORDED 05/06/20 09 7:51AM BY VOLODYMYR MELO, JAMES ON/ADDEN DUM Annmarie Chavira-Geraldine farooq null, [facility] 6 10:20:01 Dysfunct ional uterine bleeding Completed 201304/26/2016 RECORDED 04/22/20 14 8:56AM BY MEE ATKINSON, OFFICE VISIT Annmarie farooq null, [facility] 6 10:20:02 Abnormal weight gain 741998047 Completed 201205/18/2014 RECORDED 11/24/19 13 4:03PM BY ENEIDA JACOBS MA, JAMES ON/ADDEN DUM Annmarie Chavira-D yoliorenolga null, [facility] 6 10:20:01 Allergic rhinitis [id number] Completed 201304/26/2016 IMPRESSI ON: ALLERGIE S QUITE UNDERTRE ATED CAUSING A COUGH. TREAT BELOW, STAY ON ZYRTEC, CALL IFN OT IMPROVED ; RECORDED 04/22/20 14 8:56AM BY MEE ATKINSON, OFFICE VISIT Annmarie farooq null, [facility] 6 10:20:02 Allergic rhinitis 47743633 Completed 200805/18/2014 IMPRESSI ON: ACTIVE, NEVER TX WITH SPRAY AND PILL, TRIAL FOR ONE MONTH, IF NOT BETTER TO ALLERGIS T FOR TESTING, SAMPLES OF NASONEX TO PT, NO EVIDENCE OF SINUSITI S, NEW PREOBLEM TO EXAMINER ; RECORDED 05/06/20 09 7:51AM BY VOLODYMYR MELO, JAMES ON/ADDEN DUM Annmarie Chavira-D yoliorenolga null, [facility] 6 10:20:01 Patient status finding [id number] Completed 201304/26/2016 RECORDED 04/22/20 14 9:06AM BY MEE ATKINSON, OFFICE VISIT Annmarie sellers, [facility] 6 10:20:02 Patient status finding [id number] Completed 201205/18/2014 RECORDED 11/24/19 13 4:03PM BY ENEIDA JACOBS MA, ANNOTATI ON/ADDEN DUM Annmarie sellers, [facility] 6 10:20:01 Cough 47325773 Completed 201205/18/2014 IMPRESSI ON: DRY RELATED TO ALLERGIE S, SPIROMET RY NL, NO ROLE FOR INHALER; RECORDED 11/24/19 13 4:03PM BY ENEIDA JACOBS MA, ANNOTATI ON/ADDEN DUM Annmarie sellers, [facility] 6 10:20:01 Influenz a vaccine needed [id number] 06 Completed 201204/26/2016 IMPRESSI ON: WILL GIVE TO PT, 4 YEAR OLD CANNOT GET FLU SHOT DUE TO LACK OF SUPPLY, MOM WILL GET VACCINAT ED; RECORDED 10/16/20 13 1:11PM BY ROSANA SHAHID MA, NURSE VISIT Annmarie sellers [facility] 6 10:20:02 Influenz a vaccine needed [id number] 06 Completed 201105/18/2014 RECORDED 06/18/20 12 9:33AM BY MEE ATKINSON, OFFICE VISIT Annmarie sellers, [facility] 6 10:20:01 Adult health examinat ion Completed 201304/26/2016 IMPRESSI ON: PAP IS UTD, PT RODRIGUEZ EE DIRECTOR OF THERAPY SERVICES FOR ERRATIC PERIODS; RECORDED 04/22/20 14 5:06PM BY ANNMARIE Malone MD, OFFICE VISIT Annmarie sellers [facility] 6 10:20:02 Well child 376503375 Completed 201105/18/2014 RECORDED 07/21/20 12 2:39PM BY JAMES AMADOR ON/ADDEN DUM Annmarie sellers, [facility] 6 10:20:02 Pure hypercho lesterol emia 258276163 Completed 201304/26/2016 RECORDED 04/22/20 14 8:56AM BY MEE ATKINSON, OFFICE VISIT Annmarie sellers, [facility] 6 10:20:02 Leukocyt osis 839337844 Completed 201304/26/2016 IMPRESSI ON: ELEVATED AT 15 IN THE PAST, PT TO RECHECK ELVEL, WORKUP FORM HEMATOLO GY ALL BENIGN; RECORDED 04/22/20 14 8:56AM BY MEE ATKINSON, OFFICE VISIT STEPHEN SMART MD [address] [facility] [address] [address] [place] [address] 4 11:13:59 Low back pain 028729316 Completed 201304/26/2016 RECORDED 04/22/20 14 8:56AM BY MEE ATKINSON, OFFICE VISIT Annmarie sellers, [facility] 6 10:20:02 Malaise and fatigue 015282665 Completed 201304/26/2016 IMPRESSI ON: MOOD IS BETTER, ENCOURAG ED MORE EXERCISE ; RECORDED 04/22/20 14 8:56AM BY MEE ATKINSON, OFFICE VISIT Annmarie sellers, [facility] 6 10:20:02 Malaise and fatigue 008849306 Completed 201205/18/2014 IMPRESSI ON: OUT OF WORK, SOME ANXIETY, USING LORAZEPA M NOW AND THEN PROMISES TO DO COUNSELI NG; RECORDED 11/24/19 13 4:03PM BY ENEIDA JACOBS MA, JAMES ON/ADDEN DUM Annmarie sellers, [facility] 6 10:20:01 Administ ration of bacteria l and viral vaccine Completed 201105/18/2014 RECORDED 04/18/20 12 2:36PM BY MEE ATKINSON, OFFICE VISIT Annmarie sellers, [facility] 6 10:20:01 Palpitat ions 26954457 Completed 201304/26/2016 IMPRESSI ON: NL EKG; RECORDED 04/22/20 14 8:56AM BY MEE ATKINSON, OFFICE VISIT Annmarie sellers, [facility] 6 10:20:02 Eruption [id number] Completed 201205/18/2014 RECORDED 11/24/19 13 4:03PM BY ENEIDA JACOBS MA, ANNOTATI ON/ADDEN DUM Annmarie sellers, [facility] 6 10:20:01 Adult health examinat ion Completed 201105/18/2014 IMPRESSI ON: PT TO GET PAP WITH DR EUNICE DELCID DISCUSS CONTROL, NL PAP LAST YEAR. INCREASE EXERCISE , VEGGIES AND DECREASE CARBS; RECORDED 07/21/20 12 2:39PM BY JAMES AMADOR ON/ADDEN DUM Annmarie sellers [facility] 6 10:20:02 Allergic urticari a [id number] Completed 201304/26/2016 RECORDED 04/22/20 14 8:56AM BY MEE ATKINSON, OFFICE VISIT Annmarie sellers [facility] 6 10:20:02 Vaginiti s and vulvovag initis Completed 200504/26/2016 DATE: 03/18/20 06; ; RECORDED 04/22/20 14 8:56AM BY MEE ATKINSON, OFFICE VISIT Annmarie sellers [facility] 6 10:20:02 Generali zed abdomina l pain [id number] Completed 200806/07/2014 IMPRESSI ON: NEG ABD/PELV IS US, PAIN IS RESOLVED , NO FURTHER WORKUP; RECORDED 05/06/20 09 7:51AM BY JAMES YORK ON/ADDEN DUM Annmarie sellers, [facility] 6 10:20:01 Abnormal weight gain 452250911 Completed 201206/07/2014 RECORDED 11/24/19 13 4:03PM BY ENEIDA JACOBS MA, JAMES ON/ADDEN DUM Annmarie sellers, [facility] 6 10:20:01 Cough 03747808 Completed 201206/07/2014 IMPRESSI ON: DRY RELATED TO ALLERGIE S, SPIROMET RY NL, NO ROLE FOR INHALER; RECORDED 11/24/19 13 4:03PM BY ENEIDA JACOBS MA, JAMES ON/ADDEN DUM Annmarie sellers, [facility] 6 10:20:01 Influenz a vaccine needed [id number] 06 Completed 201306/07/2014 IMPRESSI ON: WILL GIVE TO PT, 4 YEAR OLD CANNOT GET FLU SHOT DUE TO LACK OF SUPPLY, MOM WILL GET VACCINAT ED; RECORDED 04/22/20 14 8:49AM BY JAMES AMADOR ON/ADDEN DUM Annmarie sellers, [facility] 6 10:20:01 Well child [id number] Completed 201106/07/2014 IMPRESSI ON: PAP TODAY; RECORDED 07/21/20 12 2:39PM BY JAMES AMADOR/ADDEN DUM Annmarie sellers, [facility] 6 10:20:02 Administ ration of bacteria l and viral vaccine Completed 201106/07/2014 RECORDED 04/18/20 12 2:36PM BY MEE ATKINSON, OFFICE VISIT Annmarie GladingEmil sellers [facility] 6 10:20:02 Obesity [id number] Active 2013 VOL[address] [place], [facility] 1 10:17:39 Eruption [id number] Completed 201206/07/2014 RECORDED 11/24/19 13 4:03PM BY ENEIDA JACOBS MA, ANNOTATI ON/ADDEN DUM Annmarie johnsonsai sellers [facility] 6 10:20:01 Disorder of breast 53192111 Completed 04/26/2016 [address]ine [address]sai sellers [facility] 6 10:20:02 Pain in calf 890254585 Completed 04/26/2016 Ann[address]Geraldine el[address]sai sellers [facility] 6 10:20:02 Asthma 492472054 Completed 202009/20/2021 Annmarie johnsonsai sellers, 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 1 12:21:59 Leukocyt osis 969768850 Active 2013 IMPRESSI ON: ELEVATED AT 15 IN THE PAST, PT TO RECHECK ELVEL, WORKUP FORM HEMATOLO GY ALL BENIGN; RECORDED 04/22/20 14 8:56AM BY MEE ATKINSON, OFFICE VISIT STEPHEN SMART MD [address] [facility] [address], [facility] [address], [facility] 4 11:13:59 Problem Notes None recorded. Procedures Surgical History Date Name Laterality Status Provider Name and Address Organization Details Recorded Time 4 Most Recent Mammogram completed Radha Hurtado [facility] 08/17/2024 10:24:27 2 Mammogram one breast completed Bhumi Forman [facility] 04/12/2022 11:13:33 2 Mammogram screening completed Destini Dunlap [facility] 03/29/2022 10:57:00 2 Date of Last Pap Smear completed Cheri Castano [facility] 03/02/2022 15:29:21 2 Hernia Repair completed Gracie Martinez [facility] 04/25/2015 13:43:02 Imaging Results Imaging Date Name Status LastModified by Organiz ation Details LastModified Time 03/28/2022 MAMMO, screening, digital, [facility] [address] [place] [address], [address], 10/08/2022 01:20:38 04/04/2022 mm digital mammo unilat right completed [facility] (Outpt Imaging) [address] [place], [address], 10/08/2022 01:20:37 04/05/2023 MAMMO, screening, digital, bilateral completed [address] (Outpt Imaging) [address] [place], [address], 04/05/2023 15:55:39 08/14/2024 MAMMO, screening, bilateral completed [address] [facility] [address] [place], [address], 08/17/2024 10:25:01 08/14/2024 MAMMO, screening, digital, bilateral completed [address] (Outpt Imaging) [address] [place] [address], [address], 08/17/2024 10:24:30 Procedure Notes None recorded. Medical Equipment None Reported. Allergies Allergen ID Allergen Name Allergen Category Reaction Reaction Severity Criticality Documentation Date Start Date Code Code System Note Provider Name and Address Organization Details Recorded Time 28262 Zofran medicatio n hives severe Not available 05/15/2017 11920 RxNorm Mee Atkinson MA [facility], [facility] 7 11:06:12 Medications Name Sig Start Date Stop Date Status Note LastModified by Organization Details LastModified Time foster fe 11/16 1-20 mg-mcg tabs active Not Available Not Available Not Available azelastin e 0.05 % eye drops 05/15 completed Not Available Not Available Not Available Apri 0.15 mg-0.03 mg tablet DAILY 01/08 completed RECORDED 01/09/20 11 8:54AM BY MEE ATKINSON, OFFICE VISIT; Not Available Not Available Not Available tretinoin 0.025 % topical cream 07/23 completed Not Available Not Available Not Available meloxicam 15 mg tablet 07/23 completed Not Available Not Available Not Available prednison e 20 mg tablet DAILY 09/05 completed Not Available Not Available Not Available Zyrtec 10 mg tablet DAILY 05/06 completed RECORDED 05/06/20 09 9:02AM BY VOLODYMYR MELO, OFFICE VISIT; Not Available Not Available Not Available Fluticaso ne Propionat e (Inhal) 50 mcg/BLIST inhl powd DAILY active RECORDED 07/26/20 11 2:51PM BY JAMES URENA/JUAQUIN HENRIQUEZ; Not Available Not Available Not Available amoxicill in 875 mg tablet Take 1 tablet every 12 hours by oral route for 14 days. 05/15 completed Not Available Not Available Not Available citalopra m 20 mg tablet DAILY 06/18 completed RECORDED 06/18/20 12 9:28AM BY MEE ATKINSON, OFFICE VISIT; Not Available Not Available Not Available Ro 180 mg tablet DAILY 05/06 completed RECORDED 05/06/20 09 9:02AM BY VOLODYMYR MELO, OFFICE VISIT; Not Available Not Available Not Available monteluka st 10 mg tablet TAKE 1 TABLET BY MOUTH EVERY DAY 2023 active Not Available Not Available Not Avai lable albuterol sulfate HFA 90 mcg/actua tion aerosol inhaler INHALE 2 PUFF BY MOUTH EVERY 4 6 HOURS NEEDED FOR SHORTNES S OF BREATH OR WHEEZING active Not Available Not Available No t Available fluticaso ne propionat e 50 mcg/actua tion nasal spray,[employer] [place] 2 sprays every day by intranas al route each nostril for 30 days. active prn Not Available Not Available No t Available loratadin e 10 mg tablet 05/06 completed RECORDED 05/06/20 09 8:18AM BY VOLODYMYR MELO, OFFICE VISIT; Not Available Not Available Not Available 11/16 (28) 1 mg-20 mcg (21)/75 mg (7) tablet TAKE 1 TABLET BY MOUTH EVERY DAY active Not Available Not Available No t Available Flovent HFA 110 mcg/actua tion aerosol inhaler Inhale 2 puffs twice a day by inhalati on route for 30 days. active Not Available Not Available No t Available Vitamin D3 1000 po qd active Not Available Not Available No t Available Zyrtec 10 mg capsule Take 1 capsule every day by oral route. active Not Available Not Available No t Available Qvar RediHaler 80 mcg/actua tion HFA breath activated aerosol INHALE ONCE INTO THE LUNGS TWICE A DAY 09/26 completed Not Available Not Available Not Available Afluria Qd 2019- (36 mos up)(PF)60 mcg (15 mcg x4)/0.5 mL IM syringe PHARMACY ADMINIST ERED 08/19 completed Not Available Not Available Not Available Vitals Date Recorded Body height Body mass index (BMI) Body weight Oxygen saturation Oxygen saturation in Arterial blood by Pulse oximetry Heart rate Body temperature Systolic blood pressure Diastolic blood pressure Provider Name and Address Organization Details Last Updated DateTime 1 153.67 cm 39.4 kg/m2 16989.5 4 g 98 % 98 % 83 /min 97.7 [degF] 111 mm[Hg] 62 mm[Hg] Mee Atkinson MA [facility] 1 11:37:09 Date Recorded Body height Body mass index (BMI) Body weight Heart rate Oxygen saturation Oxygen saturation in Arterial blood by Pulse oximetry Body temperature Systolic blood pressure Diastolic blood pressure Provider Name and Address Organization Details Last Updated DateTime 1 153.67 cm 39.2 kg/m2 59542.8 4 g 85 /min 98 % 98 % 98.42 [degF] 111 mm[Hg] 73 mm[Hg] Eneida Jacobs MA [facility] 1 10:23:00 Date Recorded Body height Body mass index (BMI) Body weight Oxygen saturation Oxygen saturation in Arterial blood by Pulse oximetry Heart rate Body temperature Systolic blood pressure Diastolic blood pressure Provider Name and Address Organization Details Last Updated DateTime 2 153.67 cm 40.9 kg/m2 63529.1 7 g 99 % 99 % 88 /min 98.42 [degF] 126 mm[Hg] 77 mm[Hg] Mee Atkinson MA [facility] 2 15:10:40 Date Recorded Body height Body mass index (BMI) Body weight Heart rate Oxygen saturation Oxygen saturation in Arterial blood by Pulse oximetry Body temperature Systolic blood pressure Diastolic blood pressure Provider Name and Address Organization Details Last Updated DateTime 3 153.67 cm 40.4 kg/m2 28355.8 g 84 /min 99 % 99 % 97.9 [degF] 135 mm[Hg] 85 mm[Hg] Rena Cruz MA [facility] 3 15:06:37 Date Recorded Body height Body mass index (BMI) Body weight Oxygen saturation Oxygen saturation in Arterial blood by Pulse oximetry Heart rate Body temperature Systolic blood pressure Diastolic blood pressure Provider Name and Address Organization Details Last Updated DateTime 4 152.53 cm 38.7 kg/m2 81291.0 9 g 98 % 98 % 81 /min 97.8 [degF] 119 mm[Hg] 71 mm[Hg] Mee Atkinson MA [facility] 4 08:21:34 Social History Question Answer Notes LastModified by Organizat ion Details LastModified Time Tobacco Smoking Status Never Smoker Gracie sellers [facility] 04/25/2015 15:23:23 Do You Have An Advance Directive? No Information not available 09/20/2021 What Is Your Level Of Alcohol Consumption? None Information not available 04/25/2015 Is Blood Transfusion Acceptable In An Emergency? Yes [email or web address] Information not available 04/26/2016 What Is Your Level Of Caffeine Consumption? Moderate 1 Cup Of Coffee A Day Information not available 04/25/2015 Are You Currently Employed? Yes Information not available 04/25/2015 What Type Of Diet Are You Following? REGULAR Information not available 04/25/2015 Do You Or Have You Ever Used E-cigarettes Or Vape? 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 Alone With Daughter [email or web address] Information not available 05/22/2024 Do You Take Precautions To Prevent Distracted Driving? Yes [email or web address] Information not available 04/26/2016 How Often Do You Need To Have Someone Help You When You Read Instructions, Pamphlets, Or Other Written Material From Your Doctor Or Pharmacy? Never Information not available 09/20/2021 Have You Served In The ? No [email or web address] Information not available 08/17/2019 Have You Or Anyone In Your Household Had Any Of The Following Symptoms In The Last 14 Days: Sore Throat, Cough, Chills, Body Aches For Unknown Reasons, Shortness Of Breath For Unknown Reasons, Loss Of Smell, Loss Of Taste, Fever At Or Greater Than 100 Degrees Fahrenheit? No [email or web address] Information not available 09/29/2020 Are You Or Anyone In Your Household A Health Care Provider Or Emergency Responder? No [email or web address] Information not available 09/29/2020 To The Best Of Your Knowledge Have You Been In Close Proximity To Any Individual Who Tested Positive For COVID-19? No [email or web address] Information not available 09/29/2020 *AWV ONLY* Are You Presently Prescribed Opioid Medication By PCP Or Specialist? If YES -Provider Assess The Benefit For Other, Non-opioid Pain Therapies Instead, Even If The Patient Does Not Have OUD But Is Possibly At Risk. No Information not available 09/20/2021 Have You Recently Traveled To A COVID-19 High Risk Area Or Gathering In The Last 10 Days? No [email or web address] Information not available 02/15/2021 What Was The Date Of Your Most Recent Tobacco Screening? 05/21/2024 [email or web address] Information not available 05/22/2024 How Many Children Do You Have? 1 Information not available 04/25/2015 What Is Your Relationship Status? [email or web address] Information not available 09/29/2020 Seat Belts Used Routinely Yes [email or web address] Information not available 04/26/2016 Are You Sexually Active? Yes Information not available 09/20/2021 Are You Passively Exposed To Smoke? No Information not available 09/20/2021 Do You Or Have You Ever Used Smokeless Tobacco? Never Used Smokeless Tobacco [email or web address] Information not available 08/17/2019 General Stress Level High [email or web address] Information not available 05/22/2024 Do You Use Any Illicit Or Recreational Drugs? No Information not available 09/20/2021 Do You Use Sunscreen Routinely? Yes [email or web address] Information not available 04/26/2016 Do You Or Have You Ever Used Any Other Forms Of Tobacco Or Nicotine? No Information not available 09/20/2021 Sex: Unknown Functional Status Question Answer Note LastModified by Organizat ion Details LastModified Time Are you able to walk? [email or web address] Information not available 09/20/2021 Are you able to care for yourself? Yes Information not available 04/25/2015 What is your exercise level? Occasional Information not available 04/25/2015 Mental Status None recorded. Family History Relationship Description Onset Age of this Age Resolved Age Notes LastModified by Organization Details LastModified Time Maternal Grandfather Cerebrovascu lar disease [email or web address] Not available 12/2019 14:37:03 Maternal Grandmother Diabetes mellitus [email or web address] Not available 2014 13:45:26 Maternal Uncle Diabetes mellitus [email or web address] Not available 2014 13:45:26 Paternal Aunt Diabetes mellitus [email or web address] Not available 2014 13:45:26 Mother Dementia [email or web address] Not availab le 05/22/2024 08:23:38 Mother Hypertensive disorder [email or web address] Not available 05/22 08:23:50 Notes:No family hx of breast or colon cancer Medical History No medical history recorded. Gynecological History Statement/Question Response Date of Last Pap Smear 02/13/2022 Most Recent Mammogram 08/14/2024 Obstetrics History GPAL:G 0 P 0 0 0 0 Immunizations Vaccine Type Date Status Note Provider Nam e and Address Organization Details Recorded Time Influenza, split virus, quadrivalent, preservative [address] [facility] 12/28/2022 14:49:16 COVID-19, mRNA, LNP-S, PF, 100 mcg/0.5mL dose or 50 mcg/0.25mL dose [address] [facility] 12/28/2022 14:49:16 COVID-19, mRNA, LNP-S, PF, 100 mcg/0.5mL dose or 50 mcg/0.25mL dose [address] [facility] 09/20/2021 10:16:56 COVID-19, mRNA, LNP-S, PF, 100 mcg/0.5mL dose or 50 mcg/0.25mL dose [address] [facility] 09/20/2021 10:16:56 Influenza, split virus, quadrivalent, PF 1 completed VOLODYMYR Hill, [facility] 09/20/2021 10:16:56 Influenza, split virus, quadrivalent, PF [address] [facility] 09/20/2021 10:16:56 COVID-19, mRNA, LNP-S, PF, 100 mcg/0.5mL dose or 50 mcg/0.25mL dose [address] [facility] 09/20/2021 10:16:56 Influenza, split virus, quadrivalent, PF [address] [place] [facility] 09/26/2022 15:04:26 Influenza, split virus, quadrivalent, PF [address] [facility] 09/26/2022 15:04:26 Influenza, MDCK, quadrivalent, PF [address] [facility] 09/26/2022 15:04:26 COVID-19, mRNA, LNP-S, bivalent, PF, 50 mcg/0.5 mL or 25mcg/0.25 mL dose 2 completed Mee Atkinson VOLODYMYR marlo, [facility] 09/26/2022 15:04:26 Influenza, MDCK, quadrivalent, PF 3 completed Mee Atkinson VOLODYMYR mralo, [facility] 05/22/2024 08:14:18 COVID-19, mRNA, LNP-S, PF, 50 mcg/0.5 mL 3 completed Mee Atkinson VOLODYMYR marlo, [facility] 05/22/2024 08:14:18 COVID-19, mRNA, LNP-S, PF, 50 mcg/0.5 mL 4 completed Bhumi Forman null, [facility] 07/30/2024 09:17:06 Influenza, split virus, trivalent, PF 4 completed Bhumi Forman null, [facility] 07/30/2024 09:17:06 DTaP [address] [facility] 05/11/2014 14:03:57 DTaP [address] [facility] 05/11/2014 14:03:57 IPV [address] [facility] 05/11/2014 14:03:57 DTaP [address] [facility] 05/11/2014 14:03:57 IPV 6 completed Not Available [facility] 05/11/2014 14:03:57 IPV 7 completed Not Available [facility] 05/11/2014 14:03:58 MMR 8 completed [facility] 05/11/2014 14:03:58 DTaP 8 completed Not Available [facility] 05/11/2014 14:03:58 IPV 8 completed Not Available [facility] 05/11/2014 14:03:58 IPV 1 completed Not Available [facility] 05/11/2014 14:03:58 DTaP [address] [facility] 05/11/2014 14:03:58 Td (adult), 2 Lf tetanus toxoid, preservative free, adsorbed [address] [facility] 05/11/2014 14:03:58 MMR [address] [facility] 05/11/2014 14:03:58 Influenza, split virus, trivalent, preservative [address] [facility] 05/11/2014 14:03:58 Tdap [address] [facility] 05/11/2014 14:03:58 Influenza, split virus, trivalent, preservative [address] [facility] 05/11/2014 14:03:58 influenza, seasonal, intradermal, preservative free [address] [facility] 05/11/2014 14:03:58 Past Encounters Encounter ID Performer Location Encounter Start Date Encounter Closed Date Diagnosis/Indication Diagnosis SNOMED-CT Code Diagnosis ICD10 Code Diagnosis Note [id number] [facility] [address] [facility] [place] [address] 09/08/2007 00:00:00 [id number] [facility] [facility] [address] [facility] [place] [address] 10/03/2007 00:00:00 [id number] [facility] [facility] [address] [facility] [place] [address] 12/06/2008 00:00:00 [id number] [facility] [facility] [address] [facility] [place] [address] 01/17/2009 00:00:00 [id number] [facility] [address] [facility] [place] [address] 02/08/2009 00:00:00 [id number] [facility] [address] [facility] [place] [address] 05/06/2009 00:00:00 [id number] [facility] [facility] [address] [facility] [place] [address] 07/20/2009 00:00:00 [id number] [facility] [facility] [address] [facility] [place] [address] 01/06/2010 00:00:00 [id number] [facility] [facility] [address] [facility] [place] [address] 01/08/2011 00:00:00 [id number] [facility] [facility] [address] [facility] [place] [address] 07/25/2011 00:00:00 [id number] [facility] [facility] [address] [facility] [place] [address] 12/03/2011 00:00:00 [id number] [facility] [facility] [address] [facility] [place] [address] 12/07/2011 00:00:00 [id number] [facility] [facility] [address] [facility] [place] [address] 04/18/2012 00:00:00 [id number] [facility] [facility] [address] [facility] [place] [address] 06/18/2012 00:00:00 [id number] [facility] [facility] [address] [facility] [place] [address] 07/21/2012 00:00:00 [id number] [facility] [facility] [address] [facility] [place] [address] 11/24/2012 00:00:00 [id number] [facility] [facility] [address] [facility] [place] [address] 04/20/2013 00:00:00 [id number] [facility] [facility] [address] [facility] [place] [address] 04/22/2014 00:00:00 [id number] Annmarie leung Main Office [address] [place] [address] 04/25/2015 15:14:29 04/25/2015 15:53:47 Adult health examination [id number] pt will get pap by Dr Ginny Reynolds, Body mass index 30+ - obesity 790330659 will work on exercise andd healthy eating [id number] Adriannamarci Bella Main Office [address] [address] [place] [address] 05/09/2015 09:16:29 05/09/2015 10:03:43 Disorder of breast 71184705 right breast mass, reassuring is that it is a bit tender, getting smaller, associated with her period. will get mammogram and US Pain in calf 421225795 s ounds like upper achilles tendon, or muscular, no concern for DVT, pain resolves with walking and stretching [id number] Annmarie ChaviraMary moreauxochitl Main Office [address] [address] [place] [address] 04/26/2016 09:50:01 04/26/2016 10:36:15 Adult health examination 851802882 Z00.00 pap and mammogram utd,long talk about weight loss and exercise and setting up a plan Body mass index 30+ - obesity 502497929 E66.9 will work on exercise andd healthy eating [id number] Annmarie moreauenzo Main Office [address] [address] [place] [address] 09/05/2016 14:51:19 09/05/2016 15:40:03 Acute sinusitis 78384225 J01.90 ill for 2 weeks, no improvemen t, treat as below Allergic rhinitis 284387 04 J30.1 stay on flonase [id number] Annmarie ChaviraMary xochitl Main Office [address] [address] [place] [address] 05/15/2017 10:56:59 05/15/2017 11:55:07 Adult health examination 770454330 Z00.00 pap and mammogram utd,long talk about weight loss and exercise and setting up a plan Body mass index 30+ - obesity 572086884 E66.9 will work on exercise andd healthy eating Allergic rhinitis 304294 04 J30.1 stay on flonase Foot pain 56772682 M79.6 71 right lateral aspect, pt to see Donita for eval Eruption 338366975 R21 hyperpigme nted area on cheeks [id number] [facility] Main Office [address] [facility] [address] [place] [address] 09/16/2017 15:40:46 09/16/2017 16:15:56 Needs influenza immunization 088638823 Z23 Hyperpigme ntation of skin 40849948 L81.9 cream to face. Foot pain 74644401 M79.6 71 foot is better, could restart exercise but hasn't. Body mass index 30+ - obesity 418594057 Z68.39 will work on exercise and healthy eating [id number] Demetrius lee Main Office [address] [address] [place] [address] 03/18/2018 13:41:19 03/18/2018 15:09:12 Plantar fasciitis 017848414 M72.2 pt int suffering for past year. rec. aleve 1-2 tabs 2x/day w/ food, also rec foot stretching in am ac step oob - large bath towel - ankle pumps passively/ actively, cont gel heel cups in sneakers [id number] [facility] Main Office [address] [address] [place] [address] 07/23/2018 15:31:48 07/23/2018 16:34:19 Adult health examination 443022986 Z00.00 pap and mammogram utd,long talk about weight loss and exercise and setting up a plan Body mass index 30+ - obesity 167933030 E66.9 Z68.38 will work on exercise and healthy eating [id number] [facility] Main Office [address] [address] [place] [address] 08/17/2019 15:17:50 08/17/2019 16:14:40 Adult health examination 512063661 Z00.00 pap and mammogram utd,long talk about weight loss and exercise and setting up a plan Needs infl uenza immunization 709230667 Z23 Body mass index 30+ - obesity 829789688 E66.9 Z68.39 will work on exercise and healthy eating Fatigue 55494048 R53.83 Hypercholesterolemia 136 41286 E78.00 [id number] [facility] Main Office [address] [place] [address] 08/19/2020 14:18:28 08/19/2020 15:45:55 Adult health examination 312205759 Z00.00 pap and mammogram utd, recc weight loss and exercise Dyspnea on exertion 6084 5006 R06.09 unclear if allergic related, new dx of asthma, new c/o so will rule out cardiac and look at labs, no hx of DVT or PE. Seasonal a llergic rhinitis 384118349 J30.2 Fatigue 02131271 R53.83 Cough 24644306 R05 refer to pulmonary, ? adult onset asthma? [id number] Annmarie leung Main Office [address] [address] [place] [address] 09/29/2020 14:35:20 09/29/2020 15:28:42 Dyspnea on exertion 56100800 R06.09 so far neg CTA for PE, ETT pending from last week and will get PFT's next week and was place don steroid inhaler. Could be new onset asthma/all ergies and weight gain/decon ditioning pt will f/u with pulmonary after PFT's f/u with me in 4 months, consider route returner ifnot improving [id number] Annmarie leung Main Office [address] [address] [place] [address] 02/15/2021 11:10:59 02/15/2021 11:53:00 Iliotibial band friction syndrome 420978502 M76.32 new problem, explained pathology, needs to roll area and stretch continue walking Moderate p ersistent asthma 270189844 J45.40 new dx, on meds and desnies SOb continue [id number] Annmarie Siomara leung Main Office [address] [address] [place] [address] 09/20/2021 10:13:39 09/20/2021 11:00:30 Adult health examination 488600285 Z00.00 pap and mammogram utd, recc weight loss and exercise Screening for malignant neoplasm of breast 631218747 Z12.39 Screening for malignant neoplasm of cervix 474154377 Z12.4 pt will arrange in spring. Body mass index 30+ - obesity 289017966 E66.9 Z68.35 will work on exercise and healthy eating Moderate p ersistent asthma 947731130 J45.40 new dx, on meds and desnies SOb continue Hyperpigme ntation of skin 42531337 L81.9 cream to face. [id number] Jolene Shavonne Main Office [address] [address] [place] [address] 09/26/2022 14:49:41 09/26/2022 16:22:53 Adult health examination 257307134 Z00.00 Pt is in good general health. Social and family history reviewed. Immunizati ons reviewed, advised annual flu shot. She is upt to date on dental and eye providers, mammogram up to date, maid housekeeper up to date, Reviewed diet and exercise. Screening for malignant neoplasm of breast 805767144 Z12.39 up to date, 04/18 Screening for malignant neoplasm of cervix 250504733 Z12.4 had pap 02/16 negative Body mass index 30+ - obesity 121716362 E66.9 Z68.35 will work on exercise and healthy eating Moderate p ersistent asthma 429421136 J45.40 stable, sees pulmonary Fatigue 59779207 R53.83 Pain of ri ght knee joint 7411947004 71279 M25.561 Try PT , call if not better [id number] Jolene Marvin Main Office [address] [address] [place] [address] 12/28/2022 14:45:10 12/28/2022 15:52:58 Moderate persistent asthma 913624728 J45.40 stable, sees pulmonary and has all meds, call if any flares Body mass index 30+ - obesity 031381687 E66.9 Z68.35 Has light coil winder referral , will call to make an appt. Encouraged more exercise, she is considerin g walking more, maybe the gym. Encouraged to do labs put in at last physical Pain of ri ght knee joint 8938312125 73251 M25.561 Better now, xray negative , will call if any flares. [id number] STEPHEN SMART MD Main Office [address] [address] [place] [address] 05/22/2024 08:06:48 05/22/2024 08:53:16 Adult health examination 543135210 Z00.00 Health Maintenanc e FemaleA) Patient was counseled on healthy diet, exercise and nutrition due to BMI 38.7 B) ScreeningL ast Mammogram: start at age 50 stop at 75Date: 04/05/2023Re sult: CATARINA-1Ne xt: DUE, ordered Last Pap smear: start at age 21 to age 65Date: 04/26/2023R esults: no atypical cellsNext: 3 years Last Colonoscop y: start at age 45-75Date: Result: Next: DUE Last DEXA scan:Date: due at 65Result: ??? C) Vaccines:I nfluenza: 07/03/2023Td AP: 04/18/2012 -> DUEZoster: due at 72GVX79: due at 27IIMG81: due at 87QXZ06:PC V15:COVID: 11/18/2020, 12/16/2020, 08/21/2021 , 07/09/2022, 07/20/2023 D) Routine blood work and STI screening orderedE) Updated patient's history RTC in one year for annual exam or sooner if any acute complaints Mild inter mittent asthma 476087310 J45.20 - pt follows with pulm- c/w singular- does not use flovent daily- uses albuterol as needed- pt also has a history of allergic rhinitis: c/w flonase as needed and zyrtec Fatigue 01080595 R53.83 Z00.00 Hyperlipidemia 05412906 E78.5 Z00.00 FASTING Screening for malignant neoplasm of breast 807648077 Z12.39 Screening for malignant neoplasm of colon 030987190 Z12.11 Requires a tetanus booster 833302493 Z28.39 Body mass index 30+ - obesity 058672891 E66.9 Z68.35 - BMI of 37.8- Cut down on (limit) fast foods, sweets, and processed snack foods. - Limit alcohol intake to no more than 1- 2 drinks a day for men. One drink equals 12 oz of beer, 5 oz of wine, or 1 oz of hard liquor. - Keep a weight loss journal and keep track of the food and portions that you eat. - The exercise that you do- 4 times a week or 150 minutes cumulative of moderate exercise recommende d. Adjustment disorder with depressed mood 76587944 F43.21 - PHQ-9 score of 5, SONA-7 score of 3- pt is currently undergoing a divorce- does see a therapist once a week Health Concerns Section Related Observation LastModified by Organization Detai ls LastModified Time None Recorded Concern Status LastModified by Organization Details LastModified Time None Recorded Advance Directives Directive N: Payers Encounter Date Sequence Insurance Name Policy Number Policy Disla Covered Member ID Disla Member ID Guarantor Name 02/15/2021 1 [facility] [id number] 01 Dinorah S S Eleni [id number] Dinorah S Eleni 09/20/2021 1 [facility] [id number] 01 Dinorah S S Eleni [id number] Dinorah S Eleni 09/26/2022 1 [facility] [id number] 01 Dinorah S S Eleni [id number] Dinorah S Eleni 12/28/2022 1 [facility] [id number] 01 Dinorah S S Eleni [id number] Dinorah S Eleni 05/22/2024 1 [facility] [id number] 01 Dinorah S S Eleni [id number] Dinorah S Eleni Notes Date Note Type Note Provider Name and Address Organization Details Recorded Time 02/15/2021 text/html Pt is here for a followup of DIEZ and new left lateral leg pain. PT is doing better, was dx with asthma, is on inhalers and singulair and breathing much better. Started walking and now left lateral thigh pain. no trauma. lost weight with noon Annmarie sellers [facility] 02/15/2021 12:22:15 09/20/2021 text/html PT is here for a PE. PT is doing pretty well, asthma is well controlled and uses daily inhalers. Lost 12lbs on Noom, will restart. Annmarie sellers [facility] 09/20/2021 11:27:47 09/26/2022 text/html PT is here for a PE age 47, last one was a year ago with Dr Cait Harperconcerns:Righ t knee pain with going up the stairs, getting up from sitting, putting shoes on. Pain in anteromedial aspect. No night pain, nsaids help, no injury. No lock or giveway.mental health; mom starting with sx of early Alzheimers, not sure how to approach. Dad is frustrated and uses pt for support. Mom has refused all screenings. Jolene sellers, [facility] 10/08/2022 01:50:25 12/28/2022 text/html Pt here for foll owup on asthma and weight.She is on listed meds for asthma and has been well controlled, sees pulmonary once a year. Compliant with all meds.Weight has steadily gone up over the years, had some success with noom in the past, would like to see a light coil winder.Right knee pain better, xray negative and never did PT as pain got better. Jolene sellers, [facility] 12/31/2022 07:52:34 05/22/2024 text/html Dinorah Knowles is a 49 year old F who presented to the clinic for her annual exam. Pt denies any emergency room visits or hospitalizations during this time. Complaints: weight, pt is currently undergoing a divorce from who cheated on her. daughter does not and was the one who caught her father. Is not using ASA.OTC/Herbal supplements use: B12, D3, ashwagandha Gynecologic HistoryPatient's last menstrual period was last weekMenstrual cycle lasts 3-5 days, without spotting/clothsMenstru al cycle: irregularSexually active: no, recently divorcedContraception: OCPDenies cysts, stds, fibroids, abnormal pap smears Obstetric HistoryGravida: 1Para: 1AB: 0Livin (C/S)Complications: none Drug use: neverEtoh use: rarelytobacco use: neverspf/derm: uses Dental: every 6 monthsEye: every yearDiet: regularActivity: does work-up with princess STEPHEN SMART MD [address] [facility] [address], [place], [address], [facility] 05/22/2024 09:35:27 OBGyn Episode No OBEpisode recorded.
--- OUTSIDE RECORDS SUMMARY | 2025-01-08 16:21 | XMS_ITS | Clinical Summary ---
Author Organization [facility], Address [address] [place] [address] [place] [address] Phone Care Team Providers Care Feather Maker Name Role Phone Caridad Liu MD Primary Care Provid er Allergies Active Allergy Reactions Criticality Noted Date Comments Ondansetron Hives High 01/18/2020 Medications fluticasone (FLONASE) 50 MCG/ACT nasal spray fluticasone propionate 50 mcg/actuation nasal spray,suspension Active 11/16 1-20 MG-MCG per tablet Take 1 tablet by mouth daily 0 Active montelukast (SINGULAIR) 10 MG tablet Take 10 mg by mouth daily 0 Active cetirizine (ZyrTEC ALLERGY) 10 MG tablet Active Qvar RediHaler 80 MCG/ACT aerosol INHALE ONCE INTO THE LUNGS TWICE A DAY 0 Active Active Problems Problem Noted Date Diagnosed Date Serum creatinine outside reference range 020 Immunizations Name Administration Dates Next Due DTaP 05/10/1981, 8,1976,1975,1976 IPV 05/10/1981, 8,1976,1975,1976 Influenza Split Preservative Free ID 10/16/2013 Influenza TIV (IM) 06/18/2012,10/03/2007 Influenza, Quadrivalent, Pre servative Free 07/02/2020,08/17/2019,09/16/2017 Influenza, Quadrivalent, Wit h Preservative 07/02/2020 MMR 02/12/1991,03/04/1978 Td 02/12/1991 Tdap 04/18/2012 Social History Tobacco Use Types Packs/Day Years Used Date Smoking Tobacco: Never Assessed Comments Unknown Sex and Gender Information Value Date Recorded Sex Assigned at Not on file Legal Sex Female 8:48 AM EST Gender Identity Not on file Sexual Orientation Not on file Plan of Treatment Health Maintenance Due Date Last Done Comments Hepatitis B Vaccine (1 of 3 - 19+ 3-dose series) 1995 Influenza Vaccine (#1) 2024 0, 07/02/2020, 08/17/2019, Additional history exists Pneumococcal Vaccine: Pediatrics (0 to 5 Years) and At-Risk Patients (6 to 64 Years) Aged Out No longer eligible based on patient's age to complete this topic Insurance [address] [address] Care Teams Feather Maker Relationship Specialty Start Date End Date Caridad Liu MD [id number] [facility] [address] [place], [place] PCP - General Internal Medicine 11/17/19
== END 2025-01-08 15:20 | disposition home or self-care (01) ==
LOC: HO.HPS 15:01
PROVIDERS: PCP Student in an Organized Health Care Education/Training Program; Visit Provider Internal Medicine Pulmonary Disease
DX: J45.909 Unspecified asthma, uncomplicated (principal); Z91.09 Other allergy status, other than to drugs and biological substances
CPT/HCPCS: 99214

== ENCOUNTER → 2025-01-08 15:01 | Outpatient (BNVA) | payer OTHER, SELFPAY | PROVIDERS: PCP Student in an Organized Health Care Education/Training Program; Visit Provider Internal Medicine Pulmonary Disease ==